=== PATIENT | female | born 1945 | race Caucasian/White ===

== ENCOUNTER 2017-10-26 16:42 | Outpatient (CLI) | payer MEDICARE, BC | END 2017-10-26 16:43 | disposition home or self-care (01) | LOC: BICMAMMO 16:42 | PROVIDERS: ATTEND Obstetrics & Gynecology | DX: Z12.31 Encounter for screening mammogram for malignant neoplasm of breast (principal) | CPT/HCPCS: 77063; 77067 ==

== ENCOUNTER 2021-01-23 10:17 | Day surgery (SDC) | payer MEDICARE ==
[2021-01-23] MEDS ORDERED: Fentanyl 100 MCG/2 ML VIAL ONE ×3 (12:01→14:21)
[2021-01-23] MEDS ORDERED: Dexamethasone 20 MG/5 ML VIAL ONE (12:48)
[2021-01-23] MEDS ORDERED: PROPOFOL 200 MG/20 ML VIAL ONE (12:48)
[2021-01-23] MEDS ORDERED: Ondansetron PF 4 MG/2 ML Vial ONE (12:48)
[2021-01-23] MEDS ORDERED: Ketorolac Tromethamine 30 MG/ML VIAL ONE (12:48)
[2021-01-23] MEDS ORDERED: Lidocaine 1% PF 5 ML VIAL ONE (12:48)
[2021-01-23] MEDS ORDERED: Acetaminophen 325 MG TAB PO PRN (13:29)
[2021-01-23] MEDS ORDERED: Bisacodyl 10 MG SUPP PR PRN (13:29)
[2021-01-23] MEDS ORDERED: traMADol HCl 50 MG TAB PO PRN ×2 (13:29)
[2021-01-23] MEDS ORDERED: Ondansetron ODT 4 MG TAB PO PRN (13:29)
[2021-01-23] MEDS ORDERED: Fleet Enema 133 ML BOT PR PRN (13:29)
[2021-01-23] MEDS ORDERED: Fentanyl 100 MCG/2 ML VIAL SLOW IVP PRN (13:29)
[2021-01-23] MEDS ORDERED: Cepastat Lozenges 1 LOZ PO PRN (13:29)
[2021-01-23] MEDS ORDERED: Milk Of Magnesia 30 ML UDCUP PO PRN (13:29)
[2021-01-23] MEDS ORDERED: Ondansetron PF 4 MG/2 ML Vial IVP PRN (13:29)
[2021-01-23] MEDS ORDERED: Sodium Chloride 0.9% 1,000 ML IV SCH (13:30)
[2021-01-23] MEDS ORDERED: HYDROcodone/Acetaminophen 5/325 mg Tablet ONE (15:38)
[2021-01-23] MEDS ORDERED: CEFAZOLIN 2 GM in Premix Bag 1 BAG IVPB SCH (20:00)
[2021-01-23] MEDS ORDERED: Aspirin 81 mg Enteric Coated Tablet PO SCH (21:00)
[2021-01-23] MEDS ORDERED: Senokot S 8.6-50 MG TAB PO SCH (21:00)
[2021-01-23] MEDS ORDERED: Ferrous Gluconate 324 MG TAB PO SCH (21:00)
[2021-01-24] MEDS ORDERED: Multivitamin W/ Minerals 1 TAB PO SCH (09:00)
== END 2021-01-23 16:24 | disposition home or self-care (01) ==
LOC: SDC 10:17
PROVIDERS: ATTEND Orthopaedic Surgery
PROC: 0QS634Z Reposition Right Upper Femur with Internal Fixation Device, Percutaneous Approach (ICD-10-PCS; principal; 2021-01-23)
DX: S72.091A Other fracture of head and neck of right femur, initial encounter for closed fracture (principal); M81.0 Age-related osteoporosis without current pathological fracture; Z88.2 Allergy status to sulfonamides; W19.XXXA Unspecified fall, initial encounter
CPT/HCPCS: 27235; 73502; 76000; C1713; C1769; J0690; J1100; J1885; J2405; J2704; J3010